=== PATIENT | male | born 1985 | race Caucasian/White ===

== ENCOUNTER → 2018-12-07 | Outpatient (CLI) | payer BC | LOC: LAB 13:31 → RAD 13:31 → EDSTATUS 13:34 | DX: M79.641 Pain in right hand (principal); R22.31 Localized swelling, mass and lump, right upper limb; Z98.890 Other specified postprocedural states; Z96.7 Presence of other bone and tendon implants ==

== ENCOUNTER → 2019-10-25 | Outpatient (CLI) | payer BC | LOC: AMSURD 09:32 | DX: Z00.00 Encounter for general adult medical examination without abnormal findings (principal); E78.5 Hyperlipidemia, unspecified ==